=== PATIENT | male | born 1960 | race Caucasian/White ===

== ENCOUNTER → 2025-10-13 14:49 | Outpatient (CLI) | payer OTHER, SELFPAY | LOC: ECHO 14:52 | PROVIDERS: PCP Family Medicine; Referring Provider Internal Medicine Cardiovascular Disease; Visit Provider Internal Medicine Cardiovascular Disease | DX: I08.0 Rheumatic disorders of both mitral and aortic valves (principal) | CPT/HCPCS: 93306 ==